=== PATIENT | female | born 1985 | race Caucasian/White ===

== ENCOUNTER 2020-04-18 14:19 | Emergency (ER) | payer MEDICAID ==
[~2020-04-18] VITALS: Ht 157.5 cm; Wt 60.8 kg
[2020-04-18 14:30] VITALS: BP 115/53
--- NOTE | 2020-04-18 14:38 | NUR ---
PT C/O ANXIETY, INTERMITENT HEART PALPITATION X 13 DAYS. PT REPORTS SHE [facility] WHICH SHE HAS BEEN THERE FOR 8 MONTHS. DENIES FEVER, COUGH, SOB, CP, N/V/D, OR SICK CONTACTS. SKIN IS PINK/WARM/DRY; AAOX4 WITH EVEN AND STEADY GAIT; HR EVEN AND REGULAR; PT DENIES ANY FEVER, CP, SOB, OR COUGH AT THIS TIME; PATIENT STATES PAIN OF 0/10 AT THIS TIME; VSS; PATIENT POSITIONED FOR COMFORT; HOB ELEVATED; BEDRAILS UP X1; BED DOWN. ER MD MADE AWARE OF PT STATUS.
[2020-04-18 15:24] VITALS: BP 108/50
--- NOTE | 2020-04-18 15:24 | NUR ---
Patient discharged with v/s stable. Written and verbal after care instructions given and explained. Patient verbalized understanding. Ambulatory with steady gait. All questions addressed prior to discharge. Advised to follow up with PMD.
== END 2020-04-18 15:24 | disposition home or self-care (01) ==
LOC: MED 14:19
DX: F41.9 Anxiety disorder, unspecified (principal); F31.89 Other bipolar disorder
CPT/HCPCS: 99281